=== PATIENT | female | born 1955 | race Caucasian/White ===

== ENCOUNTER 2016-12-28 12:37 | Emergency (ER) | payer MEDICARE ==
[2016-12-28 12:38] VITALS: BMI 29.2
[2016-12-28] MEDS ORDERED: Naproxen 500 MG TAB PO STA (15:44)
[2016-12-28] MEDS ORDERED: Naproxen 500 MG TAB PO ONE (15:45)
--- NOTE | 2016-12-28 15:53 | ED PDOC ---
HPI: General Adult Time Seen by Provider: 12/28/16 15:41 Chief Complaint (Nursing): Lower Extremity Problem/Injury Chief Complaint (Provider): left knee pain History Per: Patient History/Exam Limitations: no limitations Additional Complaint(s): 61yo female comes to the ED complaining of left knee pain for 2 weeks. States she injured it while moving furniture and heard a cracking sound. Past Medical History Reviewed: Historical Data, Nursing Documentation, Vital Signs Vital Signs: Last Vital Signs Temp 96.0 F L 12/28/16 15:05 Pulse 61 12/28/16 16:09 Resp 20 12/28/16 16:09 BP 179/100 H 12/28/16 16:09 Pulse Ox 98 12/28/16 16:09 - Medical History PMH: Diabetes, HTN, Hypercholesterolemia, Hypothyroidism - Family History Family History: States: Diabetes - Home Medications Home Medications: Ambulatory Orders Medication Instructions Recorded Dicyclomine [Bentyl] 20 mg PO Q12 PRN #20 tab 02/20/15 Ergocalciferol (Vitamin D2) 50,000 unit PO QWK 02/20/15 [Vitamin D2] Esomeprazole Magnesium [Nexium] 40 mg PO DAILY 02/20/15 Glimepiride [Glimepiride] 1 mg PO DAILY 02/20/15 Hydrochlorothiazide/Valsarta 12.5 mg PO QOTHERDAY 02/20/15 [Diovan Hct 12.5 mg-160 mg] Levothyroxine [Synthroid] 100 mcg PO DAILY 02/20/15 Metformin ER [Glucophage XR] 750 mg PO BID 02/20/15 Ondansetron [Zofran Odt] 4 mg PO Q6 PRN #12 odt 02/20/15 Rosuvastatin Calcium [Crestor] 20 mg PO DAILY 02/20/15 Sitagliptin Phosphate [Januvia] 100 mg PO DAILY 02/20/15 traMADol [Ultram] 50 mg PO Q8 #10 tab 12/28/16 - Allergies Allergies/Adverse Reactions: Allergies Allergy/AdvReac Type Severity Reaction Status Date / Time No Known Allergies Allergy Verified 07/19/13 07:32 Review of Systems ROS Statement: Except As Marked, All Systems Reviewed And Found Negative Musculoskeletal: Positive for: Other (knee pain) Physical Exam - Reviewed Nursing Documentation Reviewed: Yes Vital Signs Reviewed: Yes - Physical Exam Appears: Positive for: Well, Non-toxic, No Acute Distress Head Exam: Positive for: ATRAUMATIC, NORMAL INSPECTION, NORMOCEPHALIC Skin: Positive for: Warm, Dry Extremity: Positive for: Other (left knee mild swelling medially with tenderness. ROM limited by pain. ) - ECG O2 Sat by Pulse Oximetry: 99 Disposition - Clinical Impression Clinical Impression: Knee sprain - Patient ED Disposition Is Patient to be Admitted: No Counseled Patient/Family Regarding: Studies Performed, Diagnosis, Need For Followup, Rx Given - Disposition Referrals: [facility] [Outside] Disposition: Routine/Home Disposition Time: 16:41 Condition: FAIR Prescriptions: traMADol [Ultram] 50 mg PO Q8 #10 tab Instructions: Knee Sprain (ED) Additional Comments - Additional Comments Additional Comments: Scribe Attestation: Documented by William Bergman acting as a scribe for Kranthi Macias MD. Provider Scribe Attestation: All medical record entries made by the Scribe were at my direction and personally dictated by me. I have reviewed the chart and agree that the record accurately reflects my personal performance of the history, physical exam, medical decision making, and the department course for this patient. I have also personally directed, reviewed, and agree with the discharge instructions and disposition.
--- NOTE | 2016-12-28 16:32 | RAD ---
PROCEDURE: Left Knee Radiographs. HISTORY: Pain. No history of recent/ related trauma provided COMPARISON: None. FINDINGS: BONES: Normal. No fracture. JOINTS: Normal. No osteoarthritis. JOINT EFFUSION: None. OTHER FINDINGS: None. IMPRESSION: No significant or acute findings to account for/ related to the clinical presentation.
[2016-12-28 16:43] VITALS: O2SAT 99
[2016-12-28 17:18] VITALS: BP 128/78; PULSE 78; RESP 19; TEMP 98.6
== END 2016-12-28 17:20 | disposition home or self-care (01) ==
LOC: H.ER 12:37
DX: M25.562 Pain in left knee (principal); E11.9 Type 2 diabetes mellitus without complications; E03.9 Hypothyroidism, unspecified; E78.00 Pure hypercholesterolemia, unspecified; I10 Essential (primary) hypertension; Z79.84 Long term (current) use of oral hypoglycemic drugs